=== PATIENT | male | born 1995 | race Caucasian/White ===

== ENCOUNTER 2019-01-26 08:59 | Emergency (ER) | payer OTHER ==
[2019-01-26 09:09] VITALS: BP 144/73; PULSE 80; TEMP 98; BMI 34.8
--- NOTE | 2019-01-26 10:18 | PDOC ---
History of Present Illness - General Chief Complaint: Injury Stated Complaint: INJURY Time Seen by Provider: 01/26/19 09:26 History Source: Patient Exam Limitations: Clinical Condition - History of Present Illness Initial Comments: 01/26/19 10:30 Patient with no significant past medical history present with complaint of laceration to left little finger with a work knife this morning. 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 Patient does not recall last tetanus vaccine Timing/Duration: 1-3 hours Past History - Past Medical History Allergies/Adverse Reactions: Allergies Allergy/AdvReac Type Severity Reaction Status Date / Time No Known Allergies Allergy Verified 01/26/19 09:09 Home Medications: Ambulatory Orders Cephalexin Monohydrate [Keflex -] 500 mg PO BID 7 Days #14 capsule 01/26/19 COPD: No Other medical history: Denies medical hx - Suicide/Smoking/Psychosocial Hx Smoking History: Current every day smoker Number of Cigarettes Smoked Daily: 1 Information on smoking cessation initiated: No Review of Systems - Review of Systems Able to Perform ROS?: Yes Is the patient limited Panamanian proficient: No Constitutional: No: Weakness HEENTM: No: Symptoms Reported Respiratory: No: Symptoms reported Cardiac (ROS): No: Symptoms Reported ABD/GI: No: Symptoms Reported Musculoskeletal: Yes: Symptoms Reported, Muscle Pain (left little finger laceration) Integumentary: Yes: See HPI, Other (laceration to side of left little finger) *Physical Exam - Vital Signs Last Vital Signs Temp Pulse Resp BP Pulse Ox 98.0 F 80 16 144/73 97 01/26/19 09:06 01/26/19 09:06 01/26/19 09:06 01/26/19 09:06 01/26/19 09:06 - Physical Exam Comments: 01/26/19 10:32 GENERAL: Well developed, well nourished. Awake and alert. No acute distress. NECK: Supple. Full ROM. CARDIOVASCULAR: Regular rate and rhythm. No murmurs, rubs, or gallops. Distal pulses are 2+ and symmetric. PULMONARY: No evidence of respiratory distress. Lungs clear to auscultation bilaterally. No wheezing, rales or rhonchi. MUSCULOSKELETAL Normal range of motion at all joints. SKIN: Warm and dry. 1 cm superficial laceration to lateral aspect of middle phalange of left little finger with minimal bleeding. Normal capillary refill. NEUROLOGICAL: Alert, awake, appropriate. Gait is normal without ataxia. PSYCHIATRIC: Cooperative. Good eye contact. Appropriate mood General Appearance: Yes: Nourished, Appropriately Dressed. No: Apparent Distress Procedures - Laceration/Wound Repair Left Lateral Proximal Finger 5th digit Wound Length: to 2.5 cm (1cm) Wound Explored: no foreign body present Wound's Depth, Shape: superficial Irrigated w/ Saline: Yes Betadine Prep: Yes Wound Repaired With: Steri-strips, Dermabond Sterile Dressing Applied: Yes Splint Applied: No Sling Applied: No Medical Decision Making - Medical Decision Making 01/26/19 10:35 Patient with no cigarette past medical history present with complaint of laceration to left little finger at work today. Patient does not recall last tetanus vaccine but declined tetanus vaccine today. The risk of not getting tetanus vaccine discussed with patient and patient voice understanding. Exam significant for 1 cm superficial laceration to lateral aspect of left little finger which was closed with Dermabond after cleaning with Betadine Steri- Strips applied to wound. Patient discharge on Keflex for infection prophylaxis with educational home wound care. *DC/Admit/Observation/Transfer Diagnosis at time of Disposition: Laceration of left little finger w/o foreign body w/o damage to nail Qualifiers: Encounter type: initial encounter Qualified Code(s): S61.217A - Laceration without foreign body of left little finger without damage to nail, initial encounter - Discharge Dispostion Disposition: HOME Condition at time of disposition: Stable Decision to Admit order: No - Prescriptions Prescriptions: Cephalexin Monohydrate [Keflex -] 500 mg PO BID 7 Days #14 capsule - Referrals - Patient Instructions Printed Discharge Instructions: DI for Laceration Repair With Dermabond, DI for Laceration Repair -- Finger Additional Instructions: Keep wound clean for the next 48hrs. Remove placed steri-strips as 4 days and apply neosporin or bacitracin to wound until healed. Take prescribed medication as finish it - Post Discharge Activity
== END 2019-01-26 10:19 | disposition home or self-care (01) ==
LOC: JERFT 08:59
PROC: 0HQGXZZ Repair Left Hand Skin, External Approach (ICD-10-PCS; principal; 2019-01-26)
DX: S61.217A Laceration without foreign body of left little finger without damage to nail, initial encounter (principal); W26.0XXA Contact with knife, initial encounter; Y93.89 Activity, other specified; Y92.63 Factory as the place of occurrence of the external cause; Y99.0 Civilian activity done for income or pay
CPT/HCPCS: 99281-25